=== PATIENT | female | born 1950 | race Caucasian/White ===

== ENCOUNTER 2019-04-05 10:04 | Emergency (ER) | payer MEDICARE ==
[2019-04-05 11:22] VITALS: BP 131/66
--- NOTE | 2019-04-05 11:47 | UC ---
Skin Complaint HPI - HPI Summary HPI Summary: skin lesion right lower leg x 8 months the lesion is raised , crusty , getting bigger over the past few months denies any pain, no drainage piked at it last week now having redness and pain of the right lower leg no fever, no chills - History of Current Complaint Chief Complaint: [facility] Time Seen by Provider: 04/05/19 11:26 Stated Complaint: SKIN COMP Hx Obtained From: Patient Onset/Duration: Gradual Onset, Lasting Days - 5, Still Present Timing: Constant Onset Severity: Moderate Current Severity: Moderate Pain Intensity: 0 Location: Discrete - right lower leg Character: Swelling, Pain, Redness Aggravating Factor(s): Nothing Alleviating Factor(s): Nothing Associated Signs & Symptoms: Positive: Negative. Negative: Fever, Chills - Allergy/Home Medications Allergies/Adverse Reactions: Allergies Allergy/AdvReac Type Severity Reaction Status Date / Time codeine Allergy See Comment Verified 04/05/19 11:23 Penicillins AdvReac See Comment Verified 04/05/19 11:23 Home Medications: Home Medications Benazepril HCl [Lotensin] 10 mg PO DAILY 04/05/19 [History Confirmed 04/05/19] Cholecalciferol TAB* [Vitamin D TAB*] 50,000 unit PO WEEKLY 04/05/19 [History Confirmed 04/05/19] Ipratropium/Albuterol Sulfate [Iprat-Albut 0.5-3(2.5) mg/3 ml] 3 ml IH ONCE PRN 04/05/19 [History Confirmed 04/05/19] Levocetirizine Dihydrochloride [Levocetirizine Dihydrochl] 5 mg PO DAILY [History Confirmed 04/05/19] Trilogy DAILY 04/05/19 [History] PMH/Surg Hx/FS Hx/Imm Hx Cardiovascular History: Hypertension Respiratory History: COPD - Surgical History Surgical History: Yes Surgery Procedure, Year, and Place: choley. tubal ligation - Family History Known Family History: Positive: Hypertension - Social History Alcohol Use: None Substance Use Type: None Smoking Status (MU): Former Smoker Type: Cigarettes Amount Used/How Often: 40yr Have You Smoked in the Last Year: No When Did the Patient Quit Smoking/Using Tobacco: 9 yrs Review of Systems All Other Systems Reviewed And Are Negative: Yes Is Patient Immunocompromised?: No Physical Exam Triage Information Reviewed: Yes Appearance: Well-Appearing, No Pain Distress, Well-Nourished Vital Signs: Initial Vital Signs Temp 98.6 F 04/05/19 11:15 Pulse 106 04/05/19 11:15 Resp 20 04/05/19 11:15 BP 131/66 04/05/19 11:15 Pulse Ox 100 04/05/19 11:15 Vital Signs Reviewed: Yes Eye Exam: Normal Eyes: Positive: Conjunctiva Clear ENT: Positive: Normal ENT inspection, Hearing grossly normal, Pharynx normal Neck: Positive: Supple, Nontender Respiratory: Positive: Chest non-tender, Decreased breath sounds Cardiovascular: Positive: RRR, No Murmur Skin: Positive: Other - right lower leg : + erythema, warm to touch , mild tenderness cw cellulitis + 1 cm in diamerter lesion back to the right lower leg , crusty , non-tender Course/Dx - Diagnoses Provider Diagnosis: Cellulitis of right lower leg, Skin lesion of right lower extremity Discharge ED - Sign-Out/Discharge Documenting (check all that apply): Patient Departure All imaging exams completed and their final reports reviewed: No Studies - Discharge Plan Condition: Stable Disposition: HOME Prescriptions: DOXYcycline CAP(*) [DOXYcycline 100MG CAP(*)] 100 mg PO BID #20 cap Patient Education Materials: Cellulitis (ED), Excision of Skin Lesion (DC) Referrals: Kelton Corea MD [Medical Doctor] - Ellis Guthrie MD [Primary Care Provider] - Additional Instructions: skin lesion right lower leg will make a referral to derm. may need removal of the lesion / biopsy - Billing Disposition and Condition Condition: STABLE Disposition: Home
== END 2019-04-05 11:51 | disposition home or self-care (01) ==
LOC: UCCORT 10:04
DX: L03.115 Cellulitis of right lower limb (principal); L98.8 Other specified disorders of the skin and subcutaneous tissue; I10 Essential (primary) hypertension; J44.9 Chronic obstructive pulmonary disease, unspecified; Z88.0 Allergy status to penicillin; Z88.5 Allergy status to narcotic agent; Z79.899 Other long term (current) drug therapy; Z87.891 Personal history of nicotine dependence
CPT/HCPCS: 99212; G0463